=== PATIENT | female | born 1995 | race Caucasian/White ===

== ENCOUNTER 2019-12-08 21:00 | Inpatient (IN) ==
[2019-12-08] MEDS ORDERED: ONDANSETRON 4 MG/2 ML VIAL IV PRN (21:34)
[2019-12-08] MEDS ORDERED: AMPICILLIN INJ 2,000 MG in SODIUM CHLORIDE 0.9% 100 ML IV ONE (21:36)
[2019-12-08] MEDS ORDERED: MEPERIDINE 25 MG/1 ML VIAL IV PRN (21:36)
[2019-12-08] MEDS: LACTATED RINGERS 1,000 ML IV PRN (21:47)
[2019-12-08 21:58] LABS: Basophils % 0.3 % (0.0-0.8); Eosinophils # 0.1 10*3/uL (0.0-0.87); Eosinophils % 0.6 % (0.00-10.9); Hematocrit 31.6 VOL% (35.7-47.0); Hemoglobin 10.9 GM/DL (12.0-16.0); Immature Granulocytes % 0.5 %; Immature Granulocytes Absolute 0.04 #; Lymphocytes % 25.4 % (21.3-54.2); Mean Corpuscular HGB Conc 34.5 GM/DL (32-36); Mean Platelet Volume 11.2 FL (9.6-12.0); Monocytes % 6.4 % (1.7-12.7); Neutrophils % 66.8 % (38.7-73.9); Platelet Count 184 T/CUMM (130-400); Red Blood Count 3.36 MC/CUMM (3.8-5.5); Red Cell Distribution Width 13.5 % (9.3-17.3); White Blood Count 7.9 T/CUMM (4-12)
[2019-12-08] MEDS: BETAMETH SODIUM PHOS/ACETATE 30 MG/5 ML VIAL IM SCH (22:05)
[2019-12-08 22:17] LABS: Albumin 2.7 G/DL (3.4-5.0); Bilirubin,Total 0.4 MG/DL (0.2-1.0); Calcium 9.1 MG/DL (8.5-10.1); Osmolality,Calculated 277.5 MOS/KG (273-304); Total Protein 6.7 G/DL (6.4-8.3)
[2019-12-09] MEDS: AMPICILLIN INJ 1,000 MG in SODIUM CHLORIDE 0.9% 100 ML IV SCH ×3 (01:52→10:03)
[2019-12-09] MEDS: LACTATED RINGERS 1,000 ML IV PRN (02:41)
[2019-12-09] MEDS ORDERED: ePHEDrine 50 MG/ML VIAL IV PRN (07:09)
[2019-12-09] MEDS ORDERED: ONDANSETRON 4 MG/2 ML VIAL IV ONE (07:09)
[2019-12-09] MEDS ORDERED: NALOXONE 0.4 MG/ML VIAL IV PRN (07:09)
[2019-12-09] MEDS ORDERED: diphenhydrAMINE 50 MG/1 ML VIAL IV PRN ×2 (07:09)
[2019-12-09] MEDS ORDERED: FAMOTIDINE 20 MG/2 ML VIAL IV ONE (07:09)
[2019-12-09] MEDS ORDERED: CITRIC ACID/SODIUM CITRATE 30 ML UDCUP PO ONE (07:09)
[2019-12-09] MEDS ORDERED: PROMETHAZINE 25 MG/1 ML VIAL IM ONE (07:09)
[2019-12-09] MEDS ORDERED: hydrOXYzine HCL 25 MG/1 ML VIAL IM PRN (07:09)
[2019-12-09] MEDS ORDERED: fentaNYL 2 MCG/ROPIV 0.2% EPID 100 ML EPIDURAL SCH (07:30)
[2019-12-09] MEDS ORDERED: miSOPROStoL 200 MCG TABLET ONE (09:22)
[2019-12-09] MEDS ORDERED: TRANEXAMIC ACID 1,000 MG/10 ML VIAL ONE (09:22)
[2019-12-09] MEDS ORDERED: LIDOCAINE 1% 50 ML VIAL ONE (09:22)
[2019-12-09] MEDS ORDERED: OXYTOCIN/LR 20 UNIT/1,000 ML BAG IV ONE ×2 (09:22→16:42)
[2019-12-09] MEDS ORDERED: SODIUM CHLORIDE 0.9% 0 ML IV ONE (09:23)
[2019-12-09] MEDS ORDERED: OXYTOCIN/LR 20 UNIT/1,000 ML BAG IV SCH (09:30)
[2019-12-09] MEDS: BETAMETH SODIUM PHOS/ACETATE 30 MG/5 ML VIAL IM SCH (09:58)
[2019-12-09] MEDS ORDERED: CARBOPROST TROMETHAMINE 250 MCG/ML AMP IM ONE (10:14)
[2019-12-09] MEDS ORDERED: METHYLERGONOVINE 0.2 MG/1 ML AMP ONE (10:14)
[2019-12-09 10:41] LABS: Bilirubin,Urine Negative (Negative); Blood, Urine Negative (Negative); Glucose,Urine (UA) Negative (Negative); Ketones,Urine 5 mg/dL (Negative); Mucus,Urine Occasional /LPF (Occasional); Nitrite,Urine Negative (Negative); Protein,Urine 30 MG/DL; RBC,Urine <1 /HPF (0-4); Urine Appearance CLEAR (Clear); Urine Color Yellow (Yellow); Urine Urobilinogen < 2.0 EU/DL (0.2-1.0); WBC,Urine 2 /HPF (0-6)
[2019-12-09 13:40] LABS: Cord Venous Blood HCO3 22.8 MMOL/L; Cord Venous Blood PO2 35.9
[2019-12-09] MEDS ORDERED: oxyCODONE/ACETAMINOPHEN 5-325 MG TABLET PO PRN ×2 (16:42)
[2019-12-09] MEDS ORDERED: BENZOCAINE 20%/MENTHOL 0.5% SPRAY 56 GM CAN TOP PRN (16:42)
[2019-12-09] MEDS ORDERED: BISACODYL 10 MG SUPP RECTAL PRN (16:42)
[2019-12-09] MEDS ORDERED: IBUPROFEN 800 MG TABLET PO PRN (16:42)
[2019-12-09] MEDS ORDERED: LANOLIN 50% CREAM 0.3 OZ TUBE TOP PRN (16:42)
[2019-12-09] MEDS ORDERED: MEASLES/MUMPS/RUBELLA VACCINE 0.5 ML VIAL SUBCUT ONE (16:42)
[2019-12-09] MEDS ORDERED: DIPH/TET/ACEL PERT BOOSTER VACCINE 0.5 ML VIAL IM ONE (16:42)
[2019-12-09] MEDS ORDERED: WITCH HAZEL PADS 100/JAR TOP PRN (16:42)
[2019-12-09] MEDS ORDERED: RHO(D) IMMUNE GLOBULIN 300 MCG SYRINGE IM ONE (16:42)
[2019-12-09] MEDS ORDERED: HYDROCORTISONE 2.5% RECTAL CREAM 30 GM TUBE TOP PRN (16:42)
[2019-12-09] MEDS ORDERED: ACETAMINOPHEN 325 MG TABLET PO PRN (16:42)
[2019-12-09] MEDS: DOCUSATE SODIUM 100 MG CAPSULE PO SCH (21:26)
[2019-12-10 05:48] LABS: Basophils % 0.1 % (0.0-0.8); Hematocrit 25.1 VOL% (35.7-47.0); Immature Granulocytes Absolute 0.21 #; Lymphocytes # 2.2 10*3/uL (1.4-4.0); Lymphocytes % 10.8 % (21.3-54.2); Mean Corpuscular HGB Conc 34.3 GM/DL (32-36); Mean Corpuscular Volume 95.1 FL (87-102); Mean Platelet Volume 12.3 FL (9.6-12.0); Monocytes % 5.9 % (1.7-12.7); Neutrophils % 82.2 % (38.7-73.9); Platelet Count 185 T/CUMM (130-400); Red Blood Count 2.64 MC/CUMM (3.8-5.5); Red Cell Distribution Width 13.9 % (9.3-17.3); White Blood Count 20.2 T/CUMM (4-12)
[2019-12-10 05:56] LABS: Hemoglobin 8.6 GM/DL (12.0-16.0)
[2019-12-10 06:16] LABS: Band Neutrophils 2 % (0-10); Lymphocytes 11 % (20-55); Platelet Estimate Normal; Segmented Neutrophils 82 % (50-85); Total Cells Counted 100
[2019-12-10 06:17] LABS: Anisocytosis 1+; Macrocytosis 1+
[2019-12-10] MEDS: FERROUS SULFATE 325 MG TABLET PO SCH ×2 (09:52→21:38)
[2019-12-10] MEDS: DOCUSATE SODIUM 100 MG CAPSULE PO SCH (21:38)
[2019-12-11 08:16] VITALS: BP 113/63
[2019-12-11] MEDS: DOCUSATE SODIUM 100 MG CAPSULE PO SCH (09:27)
[2019-12-11] MEDS: FERROUS SULFATE 325 MG TABLET PO SCH (09:27)
== END 2019-12-11 13:40 | disposition home or self-care (01) | DRG 805 ==
LOC: N.LDOUT 21:00 → N.LD 21:02 → N.OB 12-09 17:24
PROVIDERS: ADMIT Obstetrics & Gynecology; ATTEND Obstetrics & Gynecology